=== PATIENT | male | born 1965 | race Two or more races ===

== ENCOUNTER 2020-05-20 12:37 | Inpatient (IN) | payer MEDICAID, OTHER ==
[~2020-05-20] VITALS: Ht 175.3 cm; Wt 70.0 kg
[2020-05-20] MEDS ORDERED: THIAMINE 100mg/ml INJ (200mg/2ml VIAL) IV ONE (14:15)
[2020-05-20] MEDS ORDERED: LORazepam 2MG/ML-1ML VIAL IV ONE (14:15)
[2020-05-20] MEDS ORDERED: SODIUM CHLORIDE 0.9% 1,000 ML IV ONE (14:15)
[2020-05-20] MEDS ORDERED: FOLIC ACID 1 MG, MAGNESIUM SULF SDV 50% 8 MEQ, THIAMINE INJ 100 MG in SODIUM CHLORIDE 0... INJ SCH (14:20)
[2020-05-20 14:41] LABS: Albumin 3.7 g/dL (3.4-5.0); Anion Gap 12 (5-15); Blood Urea Nitrogen 16 mg/dL (7-18); Calcium 9.8 mg/dL (8.5-10.1); Carbon Dioxide 23 mmol/L (21-32); Chloride 107 mmol/L (98-107); Glucose 85 mg/dL (74-106); Magnesium 1.7 mg/dL (1.6-2.6); Potassium 4.9 mmol/L (3.5-5.1); Sodium 142 mmol/L (136-145)
[2020-05-20] MEDS ORDERED: AZITHROMYCIN 500MG/ 250ML 250 ML IV ONE (14:45)
[2020-05-20 14:47] LABS: Alanine Aminotransferase 31 U/L (16-61); Alkaline Phosphatase 110 U/L (45-117); Aspartate Aminotransferase 62 U/L (15-37); BUN/Creatinine Ratio 17.6; Bilirubin, Total 0.6 mg/dL (0.2-1.0); GFR African American 110 mL/min; GFR Non-African American 91 mL/min; Total Protein 7.7 g/dL (6.4-8.2)
[2020-05-20 15:20] LABS: Basophils # (auto) 0.1 10 ^3/uL (0-0.2); Basophils % (auto) 0.8 % (0.0-2.0); Eosinophils # (auto) 0.1 10 ^3/uL (0-0.8); Eosinophils % (auto) 0.6 % (0.0-7.0); Hematocrit 42.3 % (41.0-53.0); Hemoglobin 14.2 g/dL (13.5-17.5); Lymphocytes # (auto) 3.8 10 ^3/uL (0.4-5.4); Lymphocytes % (auto) 42.2 % (10.0-50.0); Mean Corpuscular Hemoglobin 27.5 pg (28.0-32.0); Mean Corpuscular Hgb Conc. 33.5 g/dL (32.0-36.0); Mean Corpuscular Volume 82.1 fL (80.0-100.0); Monocytes # (auto) 0.3 10 ^3/uL (0-1.3); Monocytes % (auto) 3.3 % (0.0-12.0); Neutrophils # (auto) 4.8 10 ^3/uL (1.6-8.6); Neutrophils % (auto) 53.1 % (37.0-80.0); Nucleated Red Blood Cells % 0.2 %; Platelet Count (auto) 234 10^3/uL (140-450); Red Blood Cells 5.15 10^6/uL (4.5-5.90); Red Cell Distribution Width 16.4 % (11.8-14.3)
[2020-05-20 15:37] LABS: INR 1.1 (0.9-1.15)
[2020-05-20 16:16] LABS: Lactic Acid w/Reflex 5.6 mmol/L (0.4-2.0)
[2020-05-20] MEDS ORDERED: MORPHINE SULF INJ 2 MG/ML SYRINGE 1ML IV PRN ×2 (17:00→17:30)
[2020-05-20] MEDS ORDERED: levoFLOXacin 750MG 150 ML IV ONE (17:00)
[2020-05-20] MEDS ORDERED: NITROGLYCERIN 0.4 MG SL TAB SL PRN (17:00)
[2020-05-20] MEDS ORDERED: LACTULOSE 20Gm/30ML SOLN PO PRN (17:30)
[2020-05-20] MEDS ORDERED: ACETAMINOPHEN 500 MG TAB PO PRN (17:30)
[2020-05-20] MEDS ORDERED: traMADol HCL 50 MG TAB PO PRN (17:30)
[2020-05-20] MEDS ORDERED: PROMETHAZINE HCL 25 MG/ML 1ML IV PRN (17:30)
[2020-05-20] MEDS ORDERED: METOPROLOL TARTRATE 25 MG TAB PO ONE (17:30)
[2020-05-20] MEDS ORDERED: TEMAZEPAM 15 MG CAP PO PRN (17:30)
[2020-05-20] MEDS ORDERED: chlordiazePOXIDE HCL 25 MG CAP PO PRN (17:30)
[2020-05-20] MEDS: SODIUM CHLORIDE 0.9% 1,000 ML IV SCH (17:55)
[2020-05-20] MEDS: chlordiazePOXIDE HCL 5 MG CAP PO SCH ×2 (17:55→22:50)
[2020-05-20] MEDS ORDERED: FOLIC ACID 1 MG, MAGNESIUM SULF SDV 50% 8 MEQ, THIAMINE INJ 100 MG in SODIUM CHLORIDE 0... INJ ONE (18:00)
[2020-05-20] MEDS: LORazepam 2MG/ML-1ML VIAL IV PRN (21:15)
[2020-05-20] MEDS: BUDESONIDE (INHALATION) 180 MCG IH IN SCH (22:00)
[2020-05-20] MEDS: FAMOTIDINE 20 MG TAB PO SCH (22:50)
[2020-05-20] MEDS: FLORASTOR (S. BOULARDII) 250 MG CAP PO SCH (22:50)
[2020-05-20] MEDS: ENOXAPARIN SOD 40 MG/0.4 ML SYRINGE SC SCH (22:50)
[2020-05-21] MEDS: LORazepam 2MG/ML-1ML VIAL IV PRN ×2 (04:51→10:28)
[2020-05-21] MEDS: chlordiazePOXIDE HCL 5 MG CAP PO SCH ×4 (05:45→18:00)
[2020-05-21] MEDS: SODIUM CHLORIDE 0.9% 1,000 ML IV SCH ×2 (05:45→18:00)
[2020-05-21] MEDS: BUDESONIDE (INHALATION) 180 MCG IH IN SCH ×2 (06:25→20:00)
[2020-05-21 06:43] LABS: Basophils # (auto) 0 10 ^3/uL (0-0.2); Basophils % (auto) 0.7 % (0.0-2.0); Eosinophils # (auto) 0.2 10 ^3/uL (0-0.8); Eosinophils % (auto) 2.7 % (0.0-7.0); Hematocrit 36.1 % (41.0-53.0); Hemoglobin 12.4 g/dL (13.5-17.5); Lymphocytes # (auto) 2.1 10 ^3/uL (0.4-5.4); Lymphocytes % (auto) 36.2 % (10.0-50.0); Mean Corpuscular Hemoglobin 27.8 pg (28.0-32.0); Mean Corpuscular Hgb Conc. 34.4 g/dL (32.0-36.0); Monocytes # (auto) 0.5 10 ^3/uL (0-1.3); Monocytes % (auto) 8.8 % (0.0-12.0); Neutrophils % (auto) 51.6 % (37.0-80.0); Nucleated Red Blood Cells % 0.1 %; Platelet Count (auto) 133 10^3/uL (140-450); Red Blood Cells 4.45 10^6/uL (4.5-5.90); Red Cell Distribution Width 16.1 % (11.8-14.3); White Blood Cell 5.8 10^3/uL (4.4-10.8)
[2020-05-21] MEDS ORDERED: IVERMECTIN 3 MG TAB PO ONE (07:00)
[2020-05-21 07:09] LABS: Potassium 3.1 mmol/L (3.5-5.1)
[2020-05-21 07:17] LABS: Albumin 3.3 g/dL (3.4-5.0); Bilirubin, Total 1.3 mg/dL (0.2-1.0); Calcium 7.9 mg/dL (8.5-10.1); Total Protein 6.7 g/dL (6.4-8.2)
[2020-05-21] MEDS ORDERED: levoFLOXacin 500MG 100 ML IV SCH (10:00)
[2020-05-21] MEDS ORDERED: CHOLECALCIFEROL (VITD3) 2,000 UNIT CAP/TAB PO SCH (10:00)
[2020-05-21] MEDS ORDERED: DexAMETHasone SOD PHOS 10MG/1ML VIAL INJ IV SCH (10:00)
[2020-05-21] MEDS ORDERED: ASCORBIC ACID 1,000 MG TAB PO SCH (10:00)
[2020-05-21] MEDS ORDERED: THIAMINE 100mg/ml INJ (200mg/2ml VIAL) IV SCH (10:00)
[2020-05-21] MEDS: FLORASTOR (S. BOULARDII) 250 MG CAP PO SCH ×2 (10:31→21:57)
[2020-05-21] MEDS: ENOXAPARIN SOD 40 MG/0.4 ML SYRINGE SC SCH ×2 (10:32→21:58)
[2020-05-21] MEDS: FAMOTIDINE 20 MG TAB PO SCH ×2 (10:32→21:58)
[2020-05-21] MEDS ORDERED: METO25TA5 PO (10:38)
[2020-05-21 11:20] LABS: Urine Bacteria NONE SEEN /hpf (None Seen); Urine Blood Negative /uL (Negative); Urine Specific Gravity 1.003 (1.001-1.035); Urine WBC <1 /hpf (0 - 3)
[2020-05-21] MEDS ORDERED: FOLIC ACID 1 MG, MULTIPLE VITAMIN 10 ML, MAGNESIUM SULF SDV 50% 8 MEQ, THIAMINE INJ 100... INJ SCH ×5 (12:00)
[2020-05-21 12:06] VITALS: BP 154/95
[2020-05-21 14:58] VITALS: BP 154/95
[2020-05-21] MEDS ORDERED: METOPROLOL TARTRATE 25 MG TAB PO ONE (15:30)
[2020-05-21 16:54] VITALS: BP 156/98
[2020-05-21 20:00] VITALS: BP 150/92
[2020-05-21] MEDS: ALBUTEROL SULF HFA 90MCG INH 200DOSE IN PRN (20:00)
[2020-05-21] MEDS ORDERED: METOPROLOL TARTRATE 25 MG TAB PO SCH (22:00)
[2020-05-21 22:23] VITALS: BP 150/92
[2020-05-22] MEDS: chlordiazePOXIDE HCL 5 MG CAP PO SCH ×2 (00:28→06:11)
[2020-05-22] MEDS: SODIUM CHLORIDE 0.9% 1,000 ML IV SCH ×2 (00:47→07:12)
[2020-05-22] MEDS: LORazepam 2MG/ML-1ML VIAL IV PRN (04:11)
[2020-05-22 05:00] VITALS: BP 146/94
[2020-05-22] MEDS: ALBUTEROL SULF HFA 90MCG INH 200DOSE IN PRN (07:33)
[2020-05-22] MEDS: BUDESONIDE (INHALATION) 180 MCG IH IN SCH (07:33)
[2020-05-22 08:58] VITALS: BP 152/97
== END 2020-05-22 08:00 | disposition left against medical advice (07) | DRG 201 ==
LOC: EDBD 12:37 → ER 12:37 → TELE 12:38 → TELE-WESTW 05-21 13:26
PROVIDERS: ADMIT Internal Medicine; ATTEND Internal Medicine
DX: I48.91 Unspecified atrial fibrillation (principal); U07.1 COVID-19; J12.82 Pneumonia due to coronavirus disease 2019; I10 Essential (primary) hypertension; F10.220 Alcohol dependence with intoxication, uncomplicated; K70.30 Alcoholic cirrhosis of liver without ascites; K57.90 Diverticulosis of intestine, part unspecified, without perforation or abscess without bleeding; Y90.8 Blood alcohol level of 240 mg/100 ml or more; Z82.49 Family history of ischemic heart disease and other diseases of the circulatory system; Z90.5 Acquired absence of kidney
CPT/HCPCS: 36415; 70450; 71045; 72125; 74176; 80053; 80320; 81001; 83605; 83690; 83735; 84443; 84484; 85025; 85610; 85730; 87040; 87426; 93005; 94640; 96361; 96365; 96367; 96375; G0378; J1100; J1956

== ENCOUNTER 2020-09-11 03:29 | Emergency (ER) | payer MEDICAID ==
[~2020-09-11] VITALS: Ht 175.3 cm; Wt 77.1 kg
[~2020-09-11 03:29] MED LIST: METO25TA5 PO
[2020-09-11] MEDS ORDERED: SODIUM CHLORIDE 0.9% 1,000 ML IV ONE ×2 (07:15)
[2020-09-11] MEDS ORDERED: LORazepam 2MG/ML-1ML VIAL IV ONE (07:15)
[2020-09-11 08:36] LABS: Basophils # (auto) 0.1 10 ^3/uL (0-0.2); Eosinophils # (auto) 0.2 10 ^3/uL (0-0.8); Eosinophils % (auto) 2.4 % (0.0-7.0); Monocytes # (auto) 0.3 10 ^3/uL (0-1.3); Red Cell Distribution Width 16.4 % (11.8-14.3); White Blood Cell 7.5 10^3/uL (4.4-10.8)
[2020-09-11 08:42] LABS: Basophils % (auto) 1.1 % (0.0-2.0); Hematocrit 45.5 % (41.0-53.0); Hemoglobin 15.1 g/dL (13.5-17.5); Lymphocytes # (auto) 3.4 10 ^3/uL (0.4-5.4); Lymphocytes % (auto) 45.7 % (10.0-50.0); Mean Corpuscular Hemoglobin 25.5 pg (28.0-32.0); Mean Corpuscular Hgb Conc. 33.1 g/dL (32.0-36.0); Mean Corpuscular Volume 77.2 fL (80.0-100.0); Monocytes % (auto) 3.6 % (0.0-12.0); Neutrophils # (auto) 3.5 10 ^3/uL (1.6-8.6); Neutrophils % (auto) 47.2 % (37.0-80.0); Nucleated Red Blood Cells % 0.7 %; Platelet Count (auto) 245 10^3/uL (140-450)
[2020-09-11 08:52] LABS: Albumin 4.2 g/dL (3.4-5.0); Anion Gap 11 (5-15); Blood Urea Nitrogen 14 mg/dL (7-18); Calcium 8.6 mg/dL (8.5-10.1); Carbon Dioxide 21 mmol/L (21-32); Chloride 109 mmol/L (98-107); Glucose 117 mg/dL (74-106); Potassium 3.8 mmol/L (3.5-5.1); Sodium 141 mmol/L (136-145)
[2020-09-11 08:57] LABS: Alanine Aminotransferase 50 U/L (16-61); Alkaline Phosphatase 118 U/L (45-117); Aspartate Aminotransferase 77 U/L (15-37); BUN/Creatinine Ratio 14.9; Bilirubin, Total 0.7 mg/dL (0.2-1.0); GFR African American 106 mL/min; GFR Non-African American 88 mL/min; Total Protein 8.5 g/dL (6.4-8.2)
[2020-09-11 11:56] VITALS: BP 138/88
== END 2020-09-11 11:58 | disposition home or self-care (01) ==
LOC: EDBD 03:29 → EDUNIT# 03:29 → ER 03:31
DX: F10.920 Alcohol use, unspecified with intoxication, uncomplicated (principal)
CPT/HCPCS: 36415; 80053; 80320; 84484; 85025; 96361; 96374; 99285; J2060

== ENCOUNTER 2020-10-12 04:25 | Emergency (ER) | payer MEDICAID ==
[~2020-10-12] VITALS: Ht 175.3 cm; Wt 77.1 kg
[2020-10-12 04:29] VITALS: BP 157/94
[2020-10-12 05:14] LABS: Barbiturate Scree,Urine NEGATIVE (NEGATIVE); Benzodiazephine Screen, Urine POSITIVE (NEGATIVE); Cannabinoid Screen, Urine NEGATIVE (NEGATIVE)
[2020-10-12 05:22] LABS: Amphetamine Screen, Urine NEGATIVE (NEGATIVE); Cocaine Screen, Urine NEGATIVE (NEGATIVE); Opiate Scree,Urine NEGATIVE (NEGATIVE); Phencyclidine Screen, Urine NEGATIVE (NEGATIVE)
[2020-10-12 05:28] LABS: Urine Bacteria NONE SEEN /hpf (None Seen); Urine Blood TRACE /uL (Negative); Urine Mucus FEW (None Seen); Urine Specific Gravity 1.021 (1.001-1.035); Urine WBC 1 /hpf (0 - 3)
[2020-10-12 09:13] LABS: Basophils # (auto) 0.1 10 ^3/uL (0-0.2); Eosinophils # (auto) 0.1 10 ^3/uL (0-0.8); White Blood Cell 8.3 10^3/uL (4.4-10.8)
[2020-10-12 09:15] LABS: Basophils % (auto) 1.3 % (0.0-2.0); Eosinophils % (auto) 1.4 % (0.0-7.0); Hematocrit 44.5 % (41.0-53.0); Lymphocytes # (auto) 4.3 10 ^3/uL (0.4-5.4); Lymphocytes % (auto) 51.9 % (10.0-50.0); Mean Corpuscular Hemoglobin 25.7 pg (28.0-32.0); Mean Corpuscular Hgb Conc. 33.7 g/dL (32.0-36.0); Mean Corpuscular Volume 76.2 fL (80.0-100.0); Monocytes # (auto) 0.2 10 ^3/uL (0-1.3); Monocytes % (auto) 2.9 % (0.0-12.0); Neutrophils # (auto) 3.5 10 ^3/uL (1.6-8.6); Neutrophils % (auto) 42.5 % (37.0-80.0); Nucleated Red Blood Cells % 0.1 %; Platelet Count (auto) 266 10^3/uL (140-450); Red Blood Cells 5.84 10^6/uL (4.5-5.90); Red Cell Distribution Width 17.3 % (11.8-14.3)
[2020-10-12 09:34] LABS: Albumin 4.5 g/dL (3.4-5.0); Anion Gap 15 (5-15); Blood Urea Nitrogen 16 mg/dL (7-18); Calcium 8.7 mg/dL (8.5-10.1); Carbon Dioxide 22 mmol/L (21-32); Chloride 106 mmol/L (98-107); Glucose 109 mg/dL (74-106); Potassium 3.7 mmol/L (3.5-5.1); Sodium 143 mmol/L (136-145)
[2020-10-12 09:43] LABS: Alanine Aminotransferase 52 U/L (16-61); Alkaline Phosphatase 131 U/L (45-117); Aspartate Aminotransferase 59 U/L (15-37); BUN/Creatinine Ratio 15.8; Bilirubin, Total 0.5 mg/dL (0.2-1.0); GFR African American 98 mL/min; GFR Non-African American 81 mL/min; Total Protein 8.8 g/dL (6.4-8.2)
== END 2020-10-12 09:37 | disposition left against medical advice (07) ==
LOC: ER 04:25
DX: R06.02 Shortness of breath (principal); Z53.21 Procedure and treatment not carried out due to patient leaving prior to being seen by health care provider
CPT/HCPCS: 36415; 71045; 80053; 80307; 80320; 81001; 83880; 84484; 85025; 85049; 93005

== ENCOUNTER 2020-10-14 08:38 | Emergency (ER) | payer MEDICAID ==
[~2020-10-14] VITALS: Ht 172.7 cm; Wt 81.6 kg
[2020-10-14] MEDS ORDERED: SODIUM CHLORIDE 0.9% 1,000 ML IV ONE ×3 (09:00)
[2020-10-14] MEDS ORDERED: THIAMINE 100mg/ml INJ (200mg/2ml VIAL) IV ONE (09:00)
[2020-10-14 09:26] LABS: Basophils # (auto) 0.1 10 ^3/uL (0-0.2); Eosinophils # (auto) 0.1 10 ^3/uL (0-0.8); Hematocrit 39.4 % (41.0-53.0); Monocytes # (auto) 0.4 10 ^3/uL (0-1.3); Red Cell Distribution Width 16.7 % (11.8-14.3)
[2020-10-14 09:29] LABS: Basophils % (auto) 0.6 % (0.0-2.0); Eosinophils % (auto) 0.4 % (0.0-7.0); Lymphocytes # (auto) 2.1 10 ^3/uL (0.4-5.4); Lymphocytes % (auto) 15.3 % (10.0-50.0); Mean Corpuscular Hemoglobin 25.6 pg (28.0-32.0); Mean Corpuscular Hgb Conc. 32.9 g/dL (32.0-36.0); Mean Corpuscular Volume 77.7 fL (80.0-100.0); Monocytes % (auto) 3.3 % (0.0-12.0); Neutrophils # (auto) 11.1 10 ^3/uL (1.6-8.6); Neutrophils % (auto) 80.4 % (37.0-80.0); Red Blood Cells 5.08 10^6/uL (4.5-5.90); White Blood Cell 13.8 10^3/uL (4.4-10.8)
[2020-10-14 09:52] LABS: Anion Gap 20 (5-15); Blood Urea Nitrogen 12 mg/dL (7-18); Calcium 8.2 mg/dL (8.5-10.1); Carbon Dioxide 14 mmol/L (21-32); Chloride 109 mmol/L (98-107); Glucose 85 mg/dL (74-106); Magnesium 2.2 mg/dL (1.6-2.6); Potassium 3.8 mmol/L (3.5-5.1); Sodium 143 mmol/L (136-145)
[2020-10-14 10:00] LABS: Alanine Aminotransferase 50 U/L (16-61); Alkaline Phosphatase 123 U/L (45-117); Aspartate Aminotransferase 76 U/L (15-37); BUN/Creatinine Ratio 11.8; Bilirubin, Total 0.6 mg/dL (0.2-1.0); GFR African American 97 mL/min; GFR Non-African American 80 mL/min; Total Protein 7.6 g/dL (6.4-8.2)
[2020-10-14 10:55] LABS: Amphetamine Screen, Urine NEGATIVE (NEGATIVE); Barbiturate Scree,Urine NEGATIVE (NEGATIVE); Benzodiazephine Screen, Urine POSITIVE (NEGATIVE); Cannabinoid Screen, Urine NEGATIVE (NEGATIVE); Cocaine Screen, Urine NEGATIVE (NEGATIVE); Opiate Scree,Urine NEGATIVE (NEGATIVE); Phencyclidine Screen, Urine NEGATIVE (NEGATIVE)
[2020-10-14] MEDS ORDERED: chlordiazePOXIDE HCL 5 MG CAP PO ONE (12:45)
[2020-10-14 12:52] VITALS: BP 118/70
== END 2020-10-14 13:29 | disposition home or self-care (01) ==
LOC: ER 08:38 → EDBD 08:38 → ER 13:29
DX: F10.129 Alcohol abuse with intoxication, unspecified (principal); J40 Bronchitis, not specified as acute or chronic; I10 Essential (primary) hypertension; Y90.9 Presence of alcohol in blood, level not specified; Z90.49 Acquired absence of other specified parts of digestive tract
CPT/HCPCS: 36415; 80053; 80307; 80320; 83735; 84484; 85025; 85049; 93005; 96361; 96374; 99284; J3411; J7030

== ENCOUNTER 2020-12-12 09:12 | Emergency (ER) | payer MEDICAID ==
[~2020-12-12] VITALS: Ht 175.3 cm; Wt 77.1 kg
[2020-12-12] MEDS ORDERED: chlordiazePOXIDE HCL 5 MG CAP PO ONE (09:30)
[2020-12-12] MEDS ORDERED: SODIUM CHLORIDE 0.9% 1,000 ML IV ONE ×2 (09:30)
[2020-12-12] MEDS ORDERED: THIAMINE 100mg/ml INJ (200mg/2ml VIAL) IV ONE (09:30)
[2020-12-12 09:42] LABS: Basophils # (auto) 0.1 10 ^3/uL (0-0.2); Eosinophils # (auto) 0.1 10 ^3/uL (0-0.8); Eosinophils % (auto) 2.2 % (0.0-7.0); Hematocrit 44.8 % (41.0-53.0); Hemoglobin 14.4 g/dL (13.5-17.5); Lymphocytes # (auto) 2.6 10 ^3/uL (0.4-5.4); Lymphocytes % (auto) 46.8 % (10.0-50.0); Mean Corpuscular Hemoglobin 25.7 pg (28.0-32.0); Mean Corpuscular Hgb Conc. 32.2 g/dL (32.0-36.0); Mean Corpuscular Volume 79.7 fL (80.0-100.0); Monocytes # (auto) 0.3 10 ^3/uL (0-1.3); Monocytes % (auto) 4.9 % (0.0-12.0); Neutrophils # (auto) 2.5 10 ^3/uL (1.6-8.6); Neutrophils % (auto) 45.1 % (37.0-80.0); Nucleated Red Blood Cells % 0.4 %; Red Blood Cells 5.63 10^6/uL (4.5-5.90); Red Cell Distribution Width 19.5 % (11.8-14.3); White Blood Cell 5.6 10^3/uL (4.4-10.8)
[2020-12-12 10:00] LABS: Alanine Aminotransferase 51 U/L (16-61); Albumin 4.1 g/dL (3.4-5.0); Anion Gap 14 (5-15); Aspartate Aminotransferase 78 U/L (15-37); BUN/Creatinine Ratio 12.5; Blood Urea Nitrogen 11 mg/dL (7-18); Calcium 8.6 mg/dL (8.5-10.1); Carbon Dioxide 23 mmol/L (21-32); Chloride 103 mmol/L (98-107); GFR African American 115 mL/min; GFR Non-African American 95 mL/min; Glucose 101 mg/dL (74-106); Potassium 3.8 mmol/L (3.5-5.1); Sodium 140 mmol/L (136-145)
[2020-12-12 10:08] LABS: Alkaline Phosphatase 141 U/L (45-117); Bilirubin, Total 0.8 mg/dL (0.2-1.0); Total Protein 8.5 g/dL (6.4-8.2)
[2020-12-12] MEDS ORDERED: LORazepam 0.5 MG TAB PO ONE (12:30)
[2020-12-12 13:08] VITALS: BP 145/91
== END 2020-12-12 16:34 | disposition home or self-care (01) ==
LOC: EDBD 09:12 → ER 09:12
DX: F10.129 Alcohol abuse with intoxication, unspecified (principal); R51.9 Headache, unspecified; I10 Essential (primary) hypertension; Y90.8 Blood alcohol level of 240 mg/100 ml or more; Z79.899 Other long term (current) drug therapy; Z90.49 Acquired absence of other specified parts of digestive tract; Z98.890 Other specified postprocedural states
CPT/HCPCS: 36415; 70450; 80053; 80320; 84484; 85025; 93005; 96361; 96374; 99285; J3411; J7030

== ENCOUNTER 2021-02-05 23:24 | Emergency (ER) | payer MEDICAID ==
[~2021-02-05] VITALS: Ht 170.2 cm; Wt 72.6 kg
[2021-02-05 23:28] VITALS: BP 126/84
[2021-02-05] MEDS ORDERED: SODIUM CHLORIDE 0.9% 1,000 ML IVB ONE (23:45)
== END 2021-02-06 01:26 | disposition left against medical advice (07) ==
LOC: EDBD 23:24 → ER 23:30
DX: F10.10 Alcohol abuse, uncomplicated (principal); F41.9 Anxiety disorder, unspecified; Z53.21 Procedure and treatment not carried out due to patient leaving prior to being seen by health care provider
CPT/HCPCS: 93005

== ENCOUNTER 2021-03-18 14:19 | Emergency (ER) | payer MEDICAID ==
[~2021-03-18] VITALS: Ht 175.3 cm; Wt 72.1 kg
[2021-03-18] MEDS ORDERED: D5W/SOD CHL 0.45%/KCL 20MEQ 1,000 ML IV ONE (15:30)
[2021-03-18] MEDS ORDERED: THIAMINE 100mg/ml INJ (200mg/2ml VIAL) IV ONE (15:30)
[2021-03-18] MEDS ORDERED: SODIUM CHLORIDE 0.9% 2,000 ML IV ONE (15:30)
[2021-03-18] MEDS ORDERED: D5W/SOD CHL 0.45% 1,000 ML IV ONE (17:00)
[2021-03-18] MEDS ORDERED: FOLIC ACID 1 MG in D5W 5% 50 ML INJ ONE (17:00)
[2021-03-18] MEDS ORDERED: MORPHINE SULFATE INJECTION 2 MG/ML SYRG IV ONE ×2 (17:00)
[2021-03-18] MEDS ORDERED: ONDANSETRON HCL 4 MG/2 ML VIAL IV ONE ×2 (17:00)
[2021-03-18 17:26] LABS: Basophils # (auto) 0.1 10 ^3/uL (0-0.2); Basophils % (auto) 0.8 % (0.0-2.0); Eosinophils # (auto) 0 10 ^3/uL (0-0.8); Eosinophils % (auto) 0.1 % (0.0-7.0); Hematocrit 44.8 % (41.0-53.0); Hemoglobin 14.9 g/dL (13.5-17.5); Lymphocytes # (auto) 1.2 10 ^3/uL (0.4-5.4); Lymphocytes % (auto) 12.8 % (10.0-50.0); Mean Corpuscular Hemoglobin 28.2 pg (28.0-32.0); Mean Corpuscular Hgb Conc. 33.3 g/dL (32.0-36.0); Mean Corpuscular Volume 84.6 fL (80.0-100.0); Monocytes # (auto) 0.3 10 ^3/uL (0-1.3); Monocytes % (auto) 3.2 % (0.0-12.0); Neutrophils # (auto) 7.5 10 ^3/uL (1.6-8.6); Neutrophils % (auto) 83.1 % (37.0-80.0); Nucleated Red Blood Cells % 0.2 %; Red Blood Cells 5.29 10^6/uL (4.5-5.90); Red Cell Distribution Width 16.3 % (11.8-14.3); White Blood Cell 9.1 10^3/uL (4.4-10.8)
[2021-03-18 17:34] LABS: Albumin 4.5 g/dL (3.4-5.0); Calcium 8.2 mg/dL (8.5-10.1); Potassium 4.7 mmol/L (3.5-5.1)
[2021-03-18 17:45] LABS: Bilirubin, Total 0.8 mg/dL (0.2-1.0); Magnesium 2.9 mg/dL (1.6-2.6)
[2021-03-18 18:17] LABS: BUN/Creatinine Ratio 15.3
[2021-03-18 19:30] VITALS: BP 127/78
== END 2021-03-18 22:46 | disposition home or self-care (01) ==
LOC: EDUNIT# 14:19 → ER 14:19 → EDBD 14:19 → ER 22:46
DX: F41.9 Anxiety disorder, unspecified (principal); F32.9 Major depressive disorder, single episode, unspecified; R07.89 Other chest pain; F10.20 Alcohol dependence, uncomplicated; Y90.8 Blood alcohol level of 240 mg/100 ml or more
CPT/HCPCS: 36415; 80053; 80320; 83735; 85025; 96361; 96374; 96375; 99284; J2270; J2405; J3411; J7060

== ENCOUNTER 2022-01-14 02:42 | Emergency (ER) | payer MEDICAID ==
[~2022-01-14] VITALS: Ht 175.3 cm; Wt 50.0 kg
[2022-01-14 08:26] VITALS: BP 140/89
[2022-01-14] MEDS ORDERED: LORazepam 2MG/ML-1ML VIAL IV ONE (10:00)
[2022-01-14] MEDS ORDERED: SODIUM CHLORIDE 0.9% 500 ML IVB ONE (10:00)
[2022-01-14] MEDS ORDERED: SODIUM CHLORIDE 0.9% 1,000 ML IV ONE (10:00)
[2022-01-14 10:24] LABS: Basophils # (auto) 0.1 10 ^3/uL (0-0.2); Eosinophils # (auto) 0 10 ^3/uL (0-0.8); Eosinophils % (auto) 0.1 % (0.0-7.0); Monocytes # (auto) 0.2 10 ^3/uL (0-1.3); Red Cell Distribution Width 16.8 % (11.8-14.3)
[2022-01-14 10:25] LABS: Basophils % (auto) 1.2 % (0.0-2.0); Hematocrit 46.9 % (41.0-53.0); Hemoglobin 15.5 g/dL (13.5-17.5); Lymphocytes # (auto) 2.9 10 ^3/uL (0.4-5.4); Lymphocytes % (auto) 29.8 % (10.0-50.0); Mean Corpuscular Hemoglobin 27.4 pg (28.0-32.0); Mean Corpuscular Hgb Conc. 33.1 g/dL (32.0-36.0); Mean Corpuscular Volume 82.8 fL (80.0-100.0); Monocytes % (auto) 1.8 % (0.0-12.0); Neutrophils # (auto) 6.5 10 ^3/uL (1.6-8.6); Neutrophils % (auto) 67.1 % (37.0-80.0); Nucleated Red Blood Cells % 0.3 %; Red Blood Cells 5.66 10^6/uL (4.5-5.90); White Blood Cell 9.6 10^3/uL (4.4-10.8)
[2022-01-14 10:44] LABS: Albumin 4.1 g/dL (3.4-5.0); Calcium 9.4 mg/dL (8.5-10.1); Potassium 4.1 mmol/L (3.5-5.1)
[2022-01-14 10:47] LABS: BUN/Creatinine Ratio 17.9; Bilirubin, Total 0.6 mg/dL (0.2-1.0); Total Protein 8.2 g/dL (6.4-8.2)
[2022-01-14] MEDS ORDERED: LORazepam 2MG/ML-1ML VIAL IM ONE (15:30)
[2022-01-14 16:38] LABS: Urine Bacteria NONE SEEN /hpf (None Seen); Urine Blood Negative /uL (Negative); Urine Mucus FEW (None Seen); Urine Specific Gravity 1.017 (1.001-1.035); Urine WBC 1 /hpf (0 - 3)
[2022-01-14] MEDS ORDERED: FOLITAB22 PO ×2 (16:49→18:00)
[2022-01-14] MEDS ORDERED: CHL25C GT ×2 (16:49→18:00)
[2022-01-14] MEDS ORDERED: THIA100T10 GT (16:49)
[2022-01-14 17:07] LABS: Amphetamine Screen, Urine NEGATIVE (NEGATIVE); Barbiturate Scree,Urine NEGATIVE (NEGATIVE); Benzodiazephine Screen, Urine NEGATIVE (NEGATIVE); Cannabinoid Screen, Urine NEGATIVE (NEGATIVE); Cocaine Screen, Urine NEGATIVE (NEGATIVE); Opiate Scree,Urine NEGATIVE (NEGATIVE); Phencyclidine Screen, Urine NEGATIVE (NEGATIVE)
[2022-01-14] MEDS ORDERED: THI100I IJ (18:00)
== END 2022-01-14 17:43 | disposition home or self-care (01) ==
LOC: ER 02:42
DX: S05.12XA Contusion of eyeball and orbital tissues, left eye, initial encounter (principal); F10.10 Alcohol abuse, uncomplicated; I10 Essential (primary) hypertension; Z90.49 Acquired absence of other specified parts of digestive tract; Z79.899 Other long term (current) drug therapy; Y04.2XXA Assault by strike against or bumped into by another person, initial encounter; Y93.89 Activity, other specified; Y92.89 Other specified places as the place of occurrence of the external cause; Y99.8 Other external cause status
CPT/HCPCS: 36415; 70450; 70486; 80053; 80307; 81001; 83690; 83735; 85025; 96361; 96372; 96374; 99285; J2060; J7030; J7040

== ENCOUNTER 2022-08-17 07:48 | Inpatient (IN) | payer MEDICAID ==
[~2022-08-17] VITALS: Ht 175.3 cm; Wt 82.0 kg
[~2022-08-17 07:48] MED LIST changes: +CHL25C GT; +FOLITAB22 PO; +THI100I IJ
[2022-08-17 09:03] LABS: Basophils # (auto) 0.1 10 ^3/uL (0-0.2); Basophils % (auto) 1.2 % (0.0-2.0); Eosinophils # (auto) 0.3 10 ^3/uL (0-0.8); Hematocrit 47.8 % (41.0-53.0); Hemoglobin 15.9 g/dL (13.5-17.5); Lymphocytes # (auto) 2.9 10 ^3/uL (0.4-5.4); Lymphocytes % (auto) 45.8 % (10.0-50.0); Mean Corpuscular Hemoglobin 28.5 pg (28.0-32.0); Mean Corpuscular Hgb Conc. 33.3 g/dL (32.0-36.0); Mean Corpuscular Volume 85.5 fL (80.0-100.0); Monocytes # (auto) 0.3 10 ^3/uL (0-1.3); Neutrophils # (auto) 2.7 10 ^3/uL (1.6-8.6); Nucleated Red Blood Cells % 0.3 %; Red Blood Cells 5.58 10^6/uL (4.5-5.90); Red Cell Distribution Width 14.8 % (11.8-14.3); White Blood Cell 6.3 10^3/uL (4.4-10.8)
[2022-08-17] MEDS ORDERED: ONDANSETRON HCL 4 MG/2 ML VIAL IV ONE (09:30)
[2022-08-17] MEDS ORDERED: cefTRIAXone 1GM/50ML D5W 50 ML IV ONE (09:30)
[2022-08-17] MEDS ORDERED: metroNIDAZOLE 500MG/100ML 100 ML IV ONE (09:30)
[2022-08-17] MEDS ORDERED: MORPHINE SULFATE 4 MG/ML SYR/VIAL IV ONE (09:30)
[2022-08-17 09:33] LABS: Albumin 4.4 g/dL (3.4-5.0); Calcium 8.5 mg/dL (8.5-10.1); Potassium 3.7 mmol/L (3.5-5.1)
[2022-08-17 09:41] LABS: BUN/Creatinine Ratio 14.7 (10.0-20.0); Bilirubin, Total 0.5 mg/dL (0.2-1.0); Total Protein 7.7 g/dL (6.4-8.2)
[2022-08-17 10:04] LABS: Amphetamine Screen, Urine NEGATIVE (NEGATIVE); Barbiturate Scree,Urine NEGATIVE (NEGATIVE); Cannabinoid Screen, Urine NEGATIVE (NEGATIVE)
[2022-08-17 10:06] LABS: Urine Bacteria NONE SEEN /hpf (None Seen); Urine Blood Negative /uL (Negative); Urine Hyaline Cast FEW /lpf (0 - 2); Urine Mucus FEW (None Seen); Urine WBC 1 /hpf (0 - 3)
[2022-08-17 10:14] LABS: Benzodiazephine Screen, Urine POSITIVE (NEGATIVE); Cocaine Screen, Urine NEGATIVE (NEGATIVE); Opiate Scree,Urine NEGATIVE (NEGATIVE); Phencyclidine Screen, Urine NEGATIVE (NEGATIVE)
[2022-08-17 10:19] LABS: Lactic Acid w/Reflex 2.1 mmol/L (0.4-2.0)
[2022-08-17] MEDS ORDERED: DOCUSATE SOD 100 MG CAP PO PRN (12:00)
[2022-08-17] MEDS: AZITHROMYCIN 500MG/ 250ML 250 ML IV SCH (12:11)
[2022-08-17] MEDS: SODIUM CHLORIDE 0.9% 1,000 ML IV SCH ×2 (12:12→21:02)
[2022-08-17] MEDS: ONDANSETRON HCL 4 MG/2 ML VIAL IV PRN (13:32)
[2022-08-17] MEDS: MORPHINE SULFATE INJ 2 MG/ml SYRG IV PRN ×2 (13:33→20:57)
[2022-08-17 18:33] VITALS: BP 140/88
[2022-08-17 20:00] VITALS: BP 137/82
[2022-08-17 22:44] VITALS: BP 137/82
[2022-08-17] MEDS: LORazepam 2MG/ML-1ML VIAL IV PRN (23:18)
[2022-08-18] MEDS: MORPHINE SULFATE INJ 2 MG/ml SYRG IV PRN ×4 (04:28→18:46)
[2022-08-18] MEDS: ONDANSETRON HCL 4 MG/2 ML VIAL IV PRN ×3 (04:32→18:45)
[2022-08-18 05:00] VITALS: BP 156/97
[2022-08-18 05:07] LABS: Basophils # (auto) 0 10 ^3/uL (0-0.2); Basophils % (auto) 0.3 % (0.0-2.0); Eosinophils # (auto) 0.1 10 ^3/uL (0-0.8); Eosinophils % (auto) 0.4 % (0.0-7.0); Hematocrit 47.2 % (41.0-53.0); Lymphocytes # (auto) 2.1 10 ^3/uL (0.4-5.4); Lymphocytes % (auto) 15.2 % (10.0-50.0); Mean Corpuscular Hemoglobin 28.8 pg (28.0-32.0); Mean Corpuscular Hgb Conc. 33.8 g/dL (32.0-36.0); Mean Corpuscular Volume 85.1 fL (80.0-100.0); Monocytes % (auto) 7.2 % (0.0-12.0); Neutrophils # (auto) 10.5 10 ^3/uL (1.6-8.6); Neutrophils % (auto) 76.9 % (37.0-80.0); Nucleated Red Blood Cells % 0.7 %; Red Blood Cells 5.55 10^6/uL (4.5-5.90); Red Cell Distribution Width 14.7 % (11.8-14.3); White Blood Cell 13.7 10^3/uL (4.4-10.8)
[2022-08-18 05:09] LABS: Calcium 7.3 mg/dL (8.5-10.1); Potassium 3.8 mmol/L (3.5-5.1)
[2022-08-18 05:16] LABS: Albumin 3.5 g/dL (3.4-5.0); BUN/Creatinine Ratio 17.2 (10.0-20.0); Bilirubin, Total 0.6 mg/dL (0.2-1.0); Total Protein 6.3 g/dL (6.4-8.2)
[2022-08-18] MEDS: SODIUM CHLORIDE 0.9% 1,000 ML IV SCH ×3 (06:05→21:28)
[2022-08-18] MEDS: LORazepam 2MG/ML-1ML VIAL IV PRN ×2 (08:59→18:45)
[2022-08-18] MEDS: PANTOPRAZOLE 40 MG/10 ML VIAL INJ IV SCH (08:59)
[2022-08-18 09:00] VITALS: BP 164/101
[2022-08-18] MEDS: cefTRIAXone 1GM/50ML D5W 50 ML IV SCH (09:00)
[2022-08-18] MEDS: AZITHROMYCIN 500MG/ 250ML 250 ML IV SCH (10:19)
[2022-08-18] MEDS ORDERED: FOLIC ACID 1 MG TAB PO ONE (11:00)
[2022-08-18] MEDS ORDERED: METOPROLOL TARTRATE 25 MG TAB PO ONE (11:00)
[2022-08-18] MEDS ORDERED: THIAMINE HCL 100 MG TAB PO ONE (11:00)
[2022-08-18] MEDS: chlordiazePOXIDE HCL 5 MG CAP PO PRN (11:54)
[2022-08-18 13:00] VITALS: BP 151/86
[2022-08-18 17:00] VITALS: BP 151/97
[2022-08-18 20:00] VITALS: BP 138/89
[2022-08-18] MEDS: METOPROLOL TARTRATE 25 MG TAB PO SCH (21:26)
[2022-08-18 22:51] VITALS: BP 138/89
[2022-08-19] MEDS: MORPHINE SULFATE INJ 2 MG/ml SYRG IV PRN ×4 (00:55→21:26)
[2022-08-19 04:44] VITALS: BP 142/85
[2022-08-19 05:50] LABS: Basophils # (auto) 0.1 10 ^3/uL (0-0.2); Basophils % (auto) 0.8 % (0.0-2.0); Eosinophils # (auto) 0.4 10 ^3/uL (0-0.8); Eosinophils % (auto) 2.8 % (0.0-7.0); Hematocrit 44.6 % (41.0-53.0); Hemoglobin 14.8 g/dL (13.5-17.5); Lymphocytes # (auto) 2.6 10 ^3/uL (0.4-5.4); Lymphocytes % (auto) 19.7 % (10.0-50.0); Mean Corpuscular Hemoglobin 28.2 pg (28.0-32.0); Mean Corpuscular Hgb Conc. 33.2 g/dL (32.0-36.0); Mean Corpuscular Volume 84.9 fL (80.0-100.0); Monocytes # (auto) 0.9 10 ^3/uL (0-1.3); Monocytes % (auto) 6.9 % (0.0-12.0); Neutrophils # (auto) 9.2 10 ^3/uL (1.6-8.6); Neutrophils % (auto) 69.8 % (37.0-80.0); Nucleated Red Blood Cells % 0.6 %; Red Blood Cells 5.25 10^6/uL (4.5-5.90); Red Cell Distribution Width 14.6 % (11.8-14.3); White Blood Cell 13.2 10^3/uL (4.4-10.8)
[2022-08-19 06:06] LABS: Potassium 3.5 mmol/L (3.5-5.1)
[2022-08-19 06:19] LABS: Albumin 3.1 g/dL (3.4-5.0); BUN/Creatinine Ratio 13.9 (10.0-20.0); Bilirubin, Total 1.5 mg/dL (0.2-1.0); Calcium 6.4 mg/dL (8.5-10.1); Magnesium 1.7 mg/dL (1.6-2.6)
[2022-08-19] MEDS: SODIUM CHLORIDE 0.9% 1,000 ML IV SCH ×3 (06:55→20:45)
[2022-08-19] MEDS: chlordiazePOXIDE HCL 5 MG CAP PO PRN (08:38)
[2022-08-19] MEDS: THIAMINE HCL 100 MG TAB PO SCH (08:39)
[2022-08-19] MEDS: METOPROLOL TARTRATE 25 MG TAB PO SCH ×2 (08:39→21:20)
[2022-08-19] MEDS: FOLIC ACID 1 MG TAB PO SCH (08:40)
[2022-08-19] MEDS: cefTRIAXone 1GM/50ML D5W 50 ML IV SCH (08:41)
[2022-08-19] MEDS: ONDANSETRON HCL 4 MG/2 ML VIAL IV PRN ×2 (08:41→14:03)
[2022-08-19] MEDS: PANTOPRAZOLE 40 MG/10 ML VIAL INJ IV SCH (08:41)
[2022-08-19 09:00] VITALS: BP 131/78
[2022-08-19] MEDS: AZITHROMYCIN 500MG/ 250ML 250 ML IV SCH ×2 (10:00→12:00)
[2022-08-19 13:00] VITALS: BP 157/91
[2022-08-19 17:00] VITALS: BP 135/77
[2022-08-19 20:00] VITALS: BP 148/87
[2022-08-19 21:45] VITALS: BP 148/87
[2022-08-19] MEDS: LORazepam 2MG/ML-1ML VIAL IV PRN (23:12)
[2022-08-20 04:43] VITALS: BP 144/84
[2022-08-20] MEDS: SODIUM CHLORIDE 0.9% 1,000 ML IV SCH ×3 (04:47→23:50)
[2022-08-20] MEDS: MORPHINE SULFATE INJ 2 MG/ml SYRG IV PRN ×4 (04:54→22:49)
[2022-08-20 06:41] LABS: BUN/Creatinine Ratio 11.8 (10.0-20.0); Calcium 6.7 mg/dL (8.5-10.1)
[2022-08-20 06:47] LABS: Potassium 2.9 mmol/L (3.5-5.1)
[2022-08-20] MEDS ORDERED: ACETAMINOPHEN 325 MG TAB PO PRN (07:00)
[2022-08-20] MEDS: POTASSIUM CHL 20MEQ/100ML 100 ML IV SCH ×3 (07:36→11:50)
[2022-08-20 08:34] VITALS: BP 151/84
[2022-08-20] MEDS ORDERED: POTASSIUM EFFERVESENT TAB 25 MEQ PO ONE (08:45)
[2022-08-20] MEDS: THIAMINE HCL 100 MG TAB PO SCH (09:20)
[2022-08-20] MEDS: PANTOPRAZOLE 40 MG/10 ML VIAL INJ IV SCH (09:21)
[2022-08-20] MEDS: METOPROLOL TARTRATE 25 MG TAB PO SCH ×2 (09:21→22:28)
[2022-08-20] MEDS: FOLIC ACID 1 MG TAB PO SCH (09:21)
[2022-08-20] MEDS: chlordiazePOXIDE HCL 5 MG CAP PO PRN (11:46)
[2022-08-20] MEDS: LORazepam 2MG/ML-1ML VIAL IV PRN (11:48)
[2022-08-20] MEDS: ONDANSETRON HCL 4 MG/2 ML VIAL IV PRN (11:49)
[2022-08-20] MEDS: cefTRIAXone 1GM/50ML D5W 50 ML IV SCH ×2 (14:43→14:53)
[2022-08-20 16:26] VITALS: BP 139/89
[2022-08-20 20:00] VITALS: BP 140/86
[2022-08-20 21:47] VITALS: BP 140/86
[2022-08-21 05:00] VITALS: BP 132/83
[2022-08-21 05:57] LABS: Basophils # (auto) 0 10 ^3/uL (0-0.2); Basophils % (auto) 0.3 % (0.0-2.0); Eosinophils # (auto) 0.5 10 ^3/uL (0-0.8); Hematocrit 40.2 % (41.0-53.0); Hemoglobin 13.8 g/dL (13.5-17.5); Lymphocytes # (auto) 1.7 10 ^3/uL (0.4-5.4); Lymphocytes % (auto) 12.9 % (10.0-50.0); Mean Corpuscular Hemoglobin 29.3 pg (28.0-32.0); Mean Corpuscular Hgb Conc. 34.4 g/dL (32.0-36.0); Mean Corpuscular Volume 85.2 fL (80.0-100.0); Monocytes # (auto) 0.8 10 ^3/uL (0-1.3); Monocytes % (auto) 6.3 % (0.0-12.0); Neutrophils # (auto) 10.4 10 ^3/uL (1.6-8.6); Neutrophils % (auto) 76.5 % (37.0-80.0); Nucleated Red Blood Cells % 0.1 %; Red Blood Cells 4.72 10^6/uL (4.5-5.90); Red Cell Distribution Width 14.1 % (11.8-14.3); White Blood Cell 13.5 10^3/uL (4.4-10.8)
[2022-08-21 06:04] LABS: Albumin 2.9 g/dL (3.4-5.0); Calcium 7.1 mg/dL (8.5-10.1); Magnesium 2.1 mg/dL (1.6-2.6)
[2022-08-21 06:09] LABS: BUN/Creatinine Ratio 7.6 (10.0-20.0); Bilirubin, Total 1.2 mg/dL (0.2-1.0); Total Protein 6.5 g/dL (6.4-8.2)
[2022-08-21] MEDS: PANTOPRAZOLE 40 MG/10 ML VIAL INJ IV SCH (09:13)
[2022-08-21] MEDS: METOPROLOL TARTRATE 25 MG TAB PO SCH (09:14)
[2022-08-21] MEDS: THIAMINE HCL 100 MG TAB PO SCH (09:14)
[2022-08-21] MEDS: FOLIC ACID 1 MG TAB PO SCH (09:14)
[2022-08-21] MEDS: cefTRIAXone 1GM/50ML D5W 50 ML IV SCH (09:14)
[2022-08-21] MEDS: SODIUM CHLORIDE 0.9% 1,000 ML IV SCH (09:15)
[2022-08-21] MEDS ORDERED: POTASSIUM CHL 20 Meq TABLET PO ONE (09:45)
== END 2022-08-21 12:27 | disposition home or self-care (01) | DRG 282 ==
LOC: ER 07:48 → OVERFLOW 12:02 → EAST 18:24
PROVIDERS: ADMIT Nurse Practitioner Family; ATTEND Internal Medicine Geriatric Medicine
DX: K85.20 Alcohol induced acute pancreatitis without necrosis or infection (principal); K70.10 Alcoholic hepatitis without ascites; E86.0 Dehydration; F10.10 Alcohol abuse, uncomplicated; I10 Essential (primary) hypertension; K21.9 Gastro-esophageal reflux disease without esophagitis; F32.A Depression, unspecified; E87.6 Hypokalemia; Z90.49 Acquired absence of other specified parts of digestive tract
CPT/HCPCS: 36415; 74176; 80048; 80053; 80307; 80320; 81001; 83605; 83690; 83735; 84484; 85025; 87040; 93005; 96365; 96368; 96375; 96376; C9113; G0378; J0696; J2405; J3480; J3490

== ENCOUNTER 2024-01-04 13:52 | Inpatient (IN) | payer MEDICAID ==
[~2024-01-04] VITALS: Ht 175.3 cm; Wt 77.1 kg
[~2024-01-04 13:52] MED LIST changes: -FOLITAB22 PO
[2024-01-04 14:56] LABS: Urine Bacteria None Seen /hpf (None Seen)
[2024-01-04 14:58] LABS: Basophils # (auto) 0.1 10 ^3/uL (0-0.2); Basophils % (auto) 0.8 % (0.0-2.0); Eosinophils # (auto) 0.1 10 ^3/uL (0-0.8); Eosinophils % (auto) 1.8 % (0.0-7.0); Hematocrit 47.1 % (41.0-53.0); Hemoglobin 16.5 g/dL (13.5-17.5); Lymphocytes # (auto) 3.9 10 ^3/uL (0.4-5.4); Lymphocytes % (auto) 50.6 % (10.0-50.0); Mean Corpuscular Hemoglobin 29.8 pg (28.0-32.0); Mean Corpuscular Volume 85.2 fL (80.0-100.0); Monocytes # (auto) 0.4 10 ^3/uL (0-1.3); Neutrophils # (auto) 3.2 10 ^3/uL (1.6-8.6); Neutrophils % (auto) 41.8 % (37.0-80.0); Platelet Count (auto) 252 10^3/uL (140-450); Red Blood Cells 5.53 10^6/uL (4.5-5.90); White Blood Cell 7.7 10^3/uL (4.4-10.8)
[2024-01-04 15:07] LABS: Alanine Aminotransferase 57 U/L (7-40); Alkaline Phosphatase 106 U/L (46-116); Anion Gap 11 (5-15); Aspartate Aminotransferase 50 U/L (13-40); BUN/Creatinine Ratio 13.8 (10.0-20.0); Blood Alcohol 285.9 mg/dL (<10); Blood Urea Nitrogen 16 mg/dL (9-23); Calcium 9.7 mg/dL (8.7-10.4); Carbon Dioxide 26 mmol/L (20-31); Chloride 105 mmol/L (98-107); Glucose 112 mg/dL (74-106); Potassium 3.8 mmol/L (3.5-5.1); Sodium 142 mmol/L (136-145)
[2024-01-04 15:08] LABS: Bilirubin, Total 0.8 mg/dL (0.2-1.0); Total Protein 8.3 g/dL (5.7-8.2)
[2024-01-04] MEDS: ONDANSETRON HCL 4 MG/2 ML VIAL IV ONE (15:37)
[2024-01-04] MEDS: THIAMINE 100mg/ml INJ (200mg/2ml VIAL) IV ONE (15:37)
[2024-01-04 15:39] LABS: Urine Amorphous Crystal FEW /hpf (None Seen); Urine Blood Negative /uL (Negative); Urine Clarity Clear (Clear); Urine Color Light-Yellow (Yellow); Urine Mucus FEW (None Seen); Urine Protein, UAD TRACE (Negative); Urine Specific Gravity 1.013 (1.001-1.035); Urine Urobilinogen Normal (Negative); Urine WBC 1 /hpf (0 - 3); Urine pH 5.5 (5.0-9.0)
[2024-01-04] MEDS: SODIUM CHLORIDE 0.9% 1,000 ML IV ONE ×2 (15:39→16:30)
[2024-01-04] MEDS: MORPHINE SULFATE 4 MG/ML SYR/VIAL IV ONE (15:46)
[2024-01-04] MEDS: MORPHINE SULFATE INJ 2 MG/ml SYRG IV ONE (18:00)
[2024-01-04 19:32] VITALS: PULSE 83; RESP 16; O2SAT 96
[2024-01-04] MEDS ORDERED: hydrALAZINE HCL 20 MG/ML VL IV PRN (21:45)
[2024-01-04] MEDS ORDERED: DOCUSATE SOD 100 MG CAP PO PRN (21:45)
[2024-01-04] MEDS ORDERED: IBUPROFEN 600 MG TAB PO PRN (21:45)
[2024-01-04] MEDS ORDERED: MORPHINE SULFATE INJ 2 MG/ml SYRG IV PRN (22:15)
[2024-01-04] MEDS ORDERED: NITROGLYCERIN 0.4 MG SL TAB SL PRN (22:15)
[2024-01-04] MEDS: METOPROLOL TARTRATE 25 MG TAB PO SCH (22:44)
[2024-01-04 23:01] VITALS: PULSE 72; RESP 12; O2SAT 97
[2024-01-05] VITALS (9 sets, daily range): BP systolic 136–155; BP diastolic 80–100; PULSE 67–86; RESP 16–19; TEMP 97.4–98.4; O2SAT 91–97
[2024-01-05] MEDS ORDERED: PANT40TA2 PO (02:01)
[2024-01-05] MEDS: MORPHINE SULFATE INJ 2 MG/ml SYRG IV PRN (02:21)
[2024-01-05] MEDS: ONDANSETRON HCL 4 MG/2 ML VIAL IV PRN (02:26)
[2024-01-05] MEDS: HYDROcodone-ACET 5/325MG TAB PO PRN (04:48)
[2024-01-05] MEDS: chlordiazePOXIDE HCL 25 MG CAP PO PRN (05:10)
[2024-01-05 07:46] LABS: Basophils # (auto) 0.1 10 ^3/uL (0-0.2); Eosinophils # (auto) 0.1 10 ^3/uL (0-0.8); Hematocrit 46.3 % (41.0-53.0); Lymphocytes % (auto) 39.4 % (10.0-50.0); Mean Corpuscular Hemoglobin 29.8 pg (28.0-32.0); Mean Corpuscular Hgb Conc. 34.5 g/dL (32.0-36.0); Mean Corpuscular Volume 86.3 fL (80.0-100.0); Monocytes # (auto) 0.3 10 ^3/uL (0-1.3); Monocytes % (auto) 4.4 % (0.0-12.0); Neutrophils % (auto) 53.2 % (37.0-80.0); Nucleated Red Blood Cells % 0.1 %; Platelet Count (auto) 214 10^3/uL (140-450); Red Blood Cells 5.36 10^6/uL (4.5-5.90); Red Cell Distribution Width 14.9 % (11.8-14.3); White Blood Cell 7.6 10^3/uL (4.4-10.8)
[2024-01-05 08:00] LABS: Alanine Aminotransferase 51 U/L (7-40); Albumin 4.6 g/dL (3.2-4.8); Alkaline Phosphatase 108 U/L (46-116); Anion Gap 15 (5-15); Aspartate Aminotransferase 52 U/L (13-40); BUN/Creatinine Ratio 12.9 (10.0-20.0); Bilirubin, Total 0.8 mg/dL (0.2-1.0); Blood Urea Nitrogen 11 mg/dL (9-23); Carbon Dioxide 20 mmol/L (20-31); Chloride 106 mmol/L (98-107); Glucose 83 mg/dL (74-106); Potassium 3.8 mmol/L (3.5-5.1); Sodium 141 mmol/L (136-145); Total Protein 7.6 g/dL (5.7-8.2)
[2024-01-05] MEDS: FOLIC ACID 1 MG TAB PO SCH (09:53)
[2024-01-05] MEDS: MULTIPLE VITAMIN TAB PO SCH (09:53)
[2024-01-05] MEDS: THIAMINE HCL 100 MG TAB PO SCH (09:53)
[2024-01-05] MEDS: chlordiazePOXIDE HCL 25 MG CAP PO SCH (12:22)
[2024-01-05] MEDS: SODIUM CHLORIDE 0.9% 1,000 ML IV SCH (12:22)
[2024-01-06] VITALS (7 sets, daily range): BP systolic 125–151; BP diastolic 73–94; PULSE 57–81; RESP 18–20; TEMP 98–98.4; O2SAT 93–100
[2024-01-06] MEDS: chlordiazePOXIDE HCL 25 MG CAP PO SCH (10:44)
[2024-01-06] MEDS: levoFLOXacin 500MG 100 ML IV ONE (11:20)
[2024-01-06] MEDS: metroNIDAZOLE 500MG/100ML 100 ML IV SCH (13:49)
[2024-01-07 00:58] VITALS: BP 130/74; PULSE 54; RESP 18; TEMP 98.1; O2SAT 97
[2024-01-07 05:00] VITALS: BP 138/80; PULSE 73; RESP 18; TEMP 98.1; O2SAT 98
[2024-01-07 08:00] VITALS: PULSE 55
[2024-01-07 09:00] VITALS: BP 150/92; PULSE 71; RESP 18; TEMP 97.8; O2SAT 97
[2024-01-07] MEDS: chlordiazePOXIDE HCL 25 MG CAP PO SCH (10:02)
[2024-01-07] MEDS: levoFLOXacin 500MG 100 ML IV SCH (10:04)
[2024-01-07] MEDS ORDERED: THIA100T13 PO (11:45)
[2024-01-07] MEDS ORDERED: METR-344 PO (11:45)
[2024-01-07] MEDS ORDERED: FOLI-119 PO (11:45)
[2024-01-07] MEDS ORDERED: CHL25C PO (11:45)
[2024-01-07] MEDS ORDERED: LEVO500T91 PO (11:45)
[2024-01-07 13:00] VITALS: BP 137/89; PULSE 57; RESP 16; TEMP 98.4; O2SAT 96
[2024-01-08] MEDS ORDERED: chlordiazePOXIDE HCL 25 MG CAP PO SCH (07:00)
== END 2024-01-07 14:45 | disposition home or self-care (01) | DRG 244 ==
LOC: ER 13:52 → TELE 22:02 → TELE-WESTW 22:04
PROVIDERS: ADMIT Nurse Practitioner Family; ATTEND Family Medicine
DX: K57.32 Diverticulitis of large intestine without perforation or abscess without bleeding (principal); G92.8 Other toxic encephalopathy; F10.129 Alcohol abuse with intoxication, unspecified; T51.91XA Toxic effect of unspecified alcohol, accidental (unintentional), initial encounter; E86.0 Dehydration; I10 Essential (primary) hypertension; R74.8 Abnormal levels of other serum enzymes; Z90.5 Acquired absence of kidney; Z63.4 Disappearance and death of family member; Z90.49 Acquired absence of other specified parts of digestive tract; Y90.8 Blood alcohol level of 240 mg/100 ml or more
CPT/HCPCS: 36415; 74176; 80053; 80320; 81001; 83690; 85025; 96361; 96374; 96375; 96376; G0378; J1956; J2405; J3490